=== PATIENT | female | born 1950 | race Caucasian/White ===

== ENCOUNTER → 2020-04-27 | Outpatient (CLI) | payer MEDICARE ==
[~2020-04-27] MED LIST: OMNIPAQUE 350 MG/ML, 100ML BOTTLE ONE
== END | disposition home or self-care (01) ==
LOC: CFH 13:16
PROVIDERS: ATTEND Urology
DX: N28.1 Cyst of kidney, acquired (principal); M47.816 Spondylosis without myelopathy or radiculopathy, lumbar region
CPT/HCPCS: 74177; 82565; Q9967

== ENCOUNTER → 2020-04-28 | Outpatient (CLI) | payer MEDICARE | END | disposition home or self-care (01) | LOC: RAD 16:03 | PROVIDERS: ATTEND Urology | DX: R19.00 Intra-abdominal and pelvic swelling, mass and lump, unspecified site (principal); Z90.710 Acquired absence of both cervix and uterus | CPT/HCPCS: 76830 ==